=== PATIENT | male | born 1945 | race Caucasian/White ===

== ENCOUNTER → 2024-06-26 09:00 | Outpatient (BNVA) | payer OTHER, MEDICARE, SELFPAY | PROVIDERS: Visit Provider Emergency Medicine | DX: R39.89 Other symptoms and signs involving the genitourinary system (principal) | CPT/HCPCS: 81000 ==

== ENCOUNTER → 2024-11-11 13:14 | Outpatient (BNVA) | payer MEDICARE, SELFPAY | PROVIDERS: Visit Provider Nurse Practitioner | DX: R50.9 Fever, unspecified (principal) | CPT/HCPCS: 87086; 87400; 87426 ==

== ENCOUNTER → 2024-12-24 10:24 | Outpatient (BNVA) | payer MEDICARE, SELFPAY | PROVIDERS: Visit Provider Nurse Practitioner | DX: N39.0 Urinary tract infection, site not specified (principal); R10.9 Unspecified abdominal pain | CPT/HCPCS: 81000; 87086 ==